=== PATIENT | female | born 2000 | race Two or more races ===

== ENCOUNTER 2024-11-02 21:10 | Observation (INO) | payer MEDICAID, SELFPAY ==
[2024-11-02] VITALS (25 sets, daily range): BP systolic 96–116; BP diastolic 53–65; PULSE 92–129; RESP 18–98; TEMP 37; O2SAT 97–100; BMI 70.7
--- NOTE | 2024-11-02 21:53 | XR_ITS ---
Examination: OB Transvaginal ultrasound of the pelvis, limited Technique: Transvaginal sonographic images pelvis performed using saldaña scale imaging Exam date and time: November 02, 2024 2158 hours INDICATIONS: Pelvic contractions today, unknown cervical length FINDINGS: Cervix 4.7 cm closed IMPRESSION: Cervix 4.7 cm closed.
[2024-11-02] MEDS: RINGERS LACTATED 1000 ML 1,000 ML 999 ML IV (22:35)
[2024-11-02 22:42] LABS: Collection Type, Urine Clean Catch
[2024-11-02 22:50] LABS: Amorphous Crystals,Urine Present (Absent); Bilirubin,Urine Negative (Negative); Blood,Urine Negative (Negative); Clarity,Urine Clear (Clear/Hazy); Color,Urine Lt-Yellow (Lt Yel-Yel); Glucose, Urine Negative (Negative); Ketones,Urine Negative (Negative); Leukocyte Esterase,Urine Positive (Negative); Nitrite,Urine Negative (Negative); PH,Urine 6.5 (5.0-7.0); Protein,Urine Negative (Neg - Trace); RBC,Urine 5 /hpf (0-3); Specific Gravity,Urine 1.016 (1.001-1.035); Squamous Epithelial Cell,Urine 5 /hpf (0-5); Urobilinogen,Urine Negative mg/dL (0.0-1.0); WBC,Urine 26 /hpf (0-5)
--- NOTE | 2024-11-02 23:11 | PD.LDPN ---
Documentation for date of: 11/02/24 OB Labor Progress Note Pelvic Exam Amniotic membrane status: Intact Contractions Monitor mode: External Contraction frequency: x1 Assessment and Plan Comments: Anahi is a 24yo with SIUP at 20+wk presenting to L&D for lower abdominal cramping. No urinary sx. She does have pink tinged discharge, no overt bleeding. She wore a thong recently and has a rash near the bottom . She notes no painful/regular ctx, no loss of fluid. She feels movement. ROS negative other than what was described above. Vitals wnl, afebrile General: well developed, well nourished, no acute distress, conversant Cardiac: normal heart rate Lungs: breathing without distress Abdomen: soft, gravid, non-tender, no rebound or guarding Extremities: no edema of BLE NEFG. Right gluteal area is edematous, appears reactionary. No erythema. Within introitus there is thick white curd-like discharge. Doptones positive [place]: no ctx pattern Labs: Urinalysis shows 26 WBC, +LE, negative nitrite, negative bacteria, positive crystals Radiology: Examination: OB Transvaginal ultrasound of the pelvis, limited Technique: Transvaginal sonographic images pelvis performed using saldaña scale imaging Exam date and time: November 02, 2024 2158 hours INDICATIONS: Pelvic contractions today, unknown cervical length FINDINGS: Cervix 4.7 cm closed IMPRESSION: Cervix 4.7 cm closed. Assessment: Anahi is a 24yo with SIUP at 20+wk with new diagnosis of UTI based on UA and vulvovaginal candidiasis based on exam. Also reactive dermatitis of right gluteal area. No evidence of PTL. Reassuring assessment. Vitals wnl. Plan: -Discussed diagnosis -Instructed patient to purchase 7 day monostat (or generic) treatment at pharmacy. Discussed how to use applicator and also instructed to apply a small amount over the edematous gluteal area. -Rx keflex 500mg PO QID x 7 days sent to pharmacy -Follow up at routine OB visit as scheduled -Discussed return precautions Julia Jenkins MD
== END 2024-11-02 23:30 | disposition home or self-care (01) ==
PROVIDERS: Admitting Provider Obstetrics & Gynecology; Visit Provider Obstetrics & Gynecology
DX: O23.42 Unspecified infection of urinary tract in pregnancy, second trimester (principal); N39.0 Urinary tract infection, site not specified; Z3A.20 20 weeks gestation of pregnancy; O98.812 Other maternal infectious and parasitic diseases complicating pregnancy, second trimester; B37.31 Acute candidiasis of vulva and vagina; O99.712 Diseases of the skin and subcutaneous tissue complicating pregnancy, second trimester; L30.9 Dermatitis, unspecified
CPT/HCPCS: 59899; 76817; 81001; J7120

== ENCOUNTER 2025-01-03 09:52 | Observation (INO) | payer MEDICAID, SELFPAY ==
[2025-01-03] VITALS (28 sets, daily range): BP systolic 96–97; BP diastolic 51–66; PULSE 86–115; RESP 16–100; TEMP 36.8; O2SAT 93–100; BMI 32.8
[2025-01-03 11:30] LABS: Collection Type, Urine Clean Catch
[2025-01-03 11:50] LABS: Bilirubin,Urine Negative (Negative); Blood,Urine Negative (Negative); Clarity,Urine Turbid (Clear/Hazy); Color,Urine Yellow (Lt Yel-Yel); Glucose, Urine Negative (Negative); Ketones,Urine Negative (Negative); Leukocyte Esterase,Urine Positive (Negative); Nitrite,Urine Negative (Negative); PH,Urine 6.5 (5.0-7.0); Protein,Urine 1+ (Neg - Trace); RBC,Urine 10 /hpf (0-3); Specific Gravity,Urine 1.025 (1.001-1.035); Squamous Epithelial Cell,Urine 22 /hpf (0-5); Urobilinogen,Urine Negative mg/dL (0.0-1.0); WBC,Urine 5 /hpf (0-5)
[2025-01-03 12:07] LABS: FFN Specimen Descripton Clr Colrless Aqueous; Fetal Fibronectin Negative (Negative)
[2025-01-03] MEDS: BETAMET ACET/BETAMET NA PH (Celestone) 6 MG/ML VIAL 12 MG IM (12:24)
== END 2025-01-03 13:58 | disposition home or self-care (01) ==
PROVIDERS: Admitting Provider Specialist; Visit Provider Specialist
DX: O47.03 False labor before 37 completed weeks of gestation, third trimester (principal); Z3A.29 29 weeks gestation of pregnancy
CPT/HCPCS: 59025; 59899; 81001; 82731; 96372; J0702

== ENCOUNTER 2025-01-04 15:32 | Outpatient (CLI) | payer MEDICAID, SELFPAY ==
[2025-01-04 15:32] VITALS: BP 105/62; PULSE 110; RESP 100; RESP 16; TEMP 36.8; BMI 34.2
[2025-01-04 15:40] VITALS: PULSE 105; O2SAT 97
[2025-01-04 15:45] VITALS: PULSE 99; O2SAT 98
[2025-01-04] MEDS: BETAMET ACET/BETAMET NA PH (Celestone) 6 MG/ML VIAL 12 MG IM (15:47)
[2025-01-04 15:50] VITALS: PULSE 111; O2SAT 100
== END 2025-01-04 16:05 | disposition home or self-care (01) ==
LOC: S4S1 15:35 → S4SX 15:35
PROVIDERS: Referring Provider Specialist; Visit Provider Specialist
DX: Z34.83 Encounter for supervision of other normal pregnancy, third trimester (principal); Z36.9 Encounter for antenatal screening, unspecified; Z3A.29 29 weeks gestation of pregnancy
CPT/HCPCS: 59025; 96372; J0702

== ENCOUNTER 2025-02-18 13:19 | Observation (INO) | payer MEDICAID, SELFPAY ==
[2025-02-18] VITALS (21 sets, daily range): BP systolic 95–102; BP diastolic 61–65; PULSE 96–132; RESP 16–97; TEMP 36.8; O2SAT 98–100; BMI 33.7
[2025-02-18 14:36] LABS: ROM Kit Lot # 58106258; ROM Swab Mixed By: MEDIA1; Rupture of Fetal Membranes Negative (Negative); Swb Mxed in Solvent 1 min? Yes
== END 2025-02-18 15:05 | disposition home or self-care (01) ==
PROVIDERS: Admitting Provider Specialist; PCP Family Medicine; Visit Provider Specialist
DX: O36.8130 Decreased fetal movements, third trimester, not applicable or unspecified (principal); Z3A.36 36 weeks gestation of pregnancy; O26.893 Other specified pregnancy related conditions, third trimester; R25.2 Cramp and spasm
CPT/HCPCS: 59025; 59899; 84112